=== PATIENT | male | born 1960 | race Caucasian/White ===

== ENCOUNTER 2016-08-31 06:33 | Outpatient (CLI) | payer OTHER ==
[~2016-08-31] VITALS: Ht 167.6 cm; Wt 109.1 kg
--- NOTE | ~2016-08-31 | HEMODYNAMI ---
PATIENT:CHATO MADRID MEDICAL RECORD: [id number] : 56 LOCATION:[facility] ADMISSION DATE: 08/31/16 Generatedon:08/31/20169:41 Patient name: CHATO MADRID Patient #: [id number] SSN: : 1960 Date of study: 08/31/2016 Page: Of Hemodynamic Procedure Report Patient Data Patient Demographics Procedure consent was obtained First Name: CHATO Gender: Male Last Name: MERCY : 1960 Patient #: [id number] Age: 56 year(s) Race: Additional ID: [id number] Contact details [address]: [address] [place] [address] State: [place] City: [place] Zip code: [address] Past Medical History History of disease Date Diagnosis Comments CAD Allergies: No known allergies Admission Admission Data Admission Date: 08/31/2016 Admission Time: 6:33 Height (in.): 66 Height (cm.): 167.64 Procedure Procedure Types Cath Procedure Diagnostic Procedure LHC LHC w/Coronaries PCI Procedure PTCA Initial x2 Miscellaneous Procedures Moderate Sedation up to 45 minutes Procedure Description Procedure Date Procedure Date: 08/31/2016 Procedure Start Time: 9:04 Procedure End Time: 9:38 Procedure Staff Name Function Rivas Crow MD Performing Physician Bi Monroe RT Scrub Debbie Vyas RN Nurse Caden Sotelo RT Monitor Procedure Data Cath Procedure Fluoroscopy Diagnostic fluoroscopy Total fluoroscopy Time: 9.9 time: 9.9 min min Diagnostic fluoroscopy Total fluoroscopy dose: dose: 1442 mGy 1442 mGy Contrast Material Contrast Material Type Amount (ml) Isovue 300 176 Entry Location Entry Primary Successful Side Size Upsize Upsize Entry Closure Succes sful Closure Location (Fr) 1 (Fr) 2 (Fr) Remarks Device Remarks Femoral Right 5 Fr 6 Fr Exoseal artery Short Diagnostic catheters Device Type Used For End Catheter Placement Cordis 5Fr JL 4.0 Left Coronary Catheter (MP) Angiography Cordis 5Fr 3DRC Catheter Right Coronary (MP) Angiography Cordis 5Fr Pigtail LV Angiography Catheter (MP) Procedure Complications No complications Procedure Medications Medication Administration Route Dosage Oxygen NC 2 l/min Heparin Flush Bag added to field 2 bags (1000units/500ml NS) Lidocaine 2% added to field 20 Versed I.V. 1 mg Fentanyl I.V. 50 mcg Versed I.V. 1 mg Fentanyl I.V. 50 mcg Fentanyl I.V. 50 mcg Fentanyl I.V. 25 mcg Fentanyl I.V. 25 mcg Heparin Bolus I.V. 96445 units Plavix P.O. 600 mg Hemodynamics Rest Heart Rate: 56 (bpm) Pressure Samples Time Site Value (mmHg) Purpose Heart Use Rate(bpm) 9:12 LV 130/14,23 EDP 54 9:13 LV 132/14,22 Snapshot 55 9:13 AO 124/72(92) Pullback 54 9:13 LV 132/14,24 Pullback 54 Gradients Valve Time Site 1 Site 2 Mean SEP/DFP Peak To Heart Use (mmHg) (sec/min) Peak Rate (mmHg) (bpm) Aortic 9:13 LV AO 12 16 8 54 132/14,24 124/72(92) Calculations Valve P-P Mean Valve Index Valve Source Name Gradient Area Flow (cm2) Aortic 8 12 8 12 Snapshots Pre Cath Intra NCS Post Cath Vital Signs Time Heart Resp SPO2 etCO2 MI1ohrc NIBP (mmHg) Rhythm Pain Sedation Rate (ipm) (%) (mmHg) (mmHg) Status Level (bpm) 8:50:37 57 18 98 0 0 148/80(110) NSR 0 (11) 10(A) , No pain 8:54:54 55 16 99 0 0 142/88(110) NSR 0 (11) 10(A) , No pain 8:59:14 55 15 98 0 0 129/73(95) NSR 0 (11) 10(A) , No pain 9:03:28 55 14 97 0 0 129/74(95) NSR 0 (11) 9(A) , No pain 9:07:41 52 16 96 0 0 121/70(91) NSR 0 (11) 9(A) , No pain 9:11:53 53 14 97 0 0 124/72(95) NSR 0 (11) 9(A) , No pain 9:16:09 52 20 97 0 0 127/62(91) NSR 0 (11) 9(A) , No pain 9:20:21 52 16 97 0 0 119/67(84) NSR 0 (11) 9(A) , No pain 9:24:33 51 22 97 0 0 119/69(89) NSR 0 (11) 9(A) , No pain 9:28:47 51 22 97 0 0 119/66(85) NSR 0 (11) 9(A) , No pain 9:32:57 61 19 98 0 0 122/73(98) NSR 0 (11) 9(A) , No pain 9:34:52 52 23 98 0 0 134/80(101) NSR 0 (11) 10(A) , No pain Medications Time Medication Route Dose Verified Delivered Reason Notes Effectiveness by by 8:55:00 Oxygen NC 2 Rivas Debbie Per physician l/min Tristin Vyas RN 8:55:10 Heparin Flush added 2 Rivas Rivas used for Bag to bags Tristin Crow MD procedure (1000units/500ml field NS) 8:55:24 Lidocaine 2% added 20ml Rivas Rivas used for to vial Tristin Crow MD procedure field 8:59:36 Versed I.V. 1 mg Rivas Debbie for sedation Tristin Vyas RN 8:59:37 Fentanyl I.V. 50 Rivas Debbie for sedation mcg Tristin Vyas RN 9:01:38 Versed I.V. 1 mg Rivas Debbie for sedation Tristin Vyas RN 9:01:44 Fentanyl I.V. 50 Rivas Debbie for sedation mcg Tristin Vyas RN 9:03:55 Fentanyl I.V. 50 Rivas Debbie for sedation saadia Vyas RN 9:10:14 Fentanyl I.V. 25 Rivas Debbie for sedation mcg Tristin Vyas RN 9:16:36 Fentanyl I.V. 25 Rivas Debbie for sedation mcg Tristin Vyas RN 9:17:40 [place]. 55655 Rivas Debbie for dose units Tristin Vyas RN anticoagulation verified with dr fontaine 9:35:24 Plavix P.O. 600 Rivas Debbie for mg Tristin Vyas RN antiplatelet therapy Procedure Log Time Note 8:30:40 Bi Monroe RT(R) sent for patient. Start room use. 8:34:33 ACC Patient presents with Stable Angina CCS Anginal Class 2--Slight limitation of ordinary activity. 8:34:36 Diagnostic Cath status Elective 8:34:43 Time tracking: Regular hours 8:34:49 Plan of Care:Hemodynamics will remain stable., Cardiac rhythm will remain stable., Comfort level will be maintained., Respiratory function will remain adequate., Patient/ family verbilizes understanding of procedure., Procedure tolerated without complication., Recovers from procedure without complications.. 8:39:36 Patient Height : 66 cm 8:45:45 Patient received from Pre/Post Procedure Room to CCL 1 Alert and oriented. Tansferred to table in Supine position. 8:45:57 Warm blankets applied, and yana hugger turned on for patient comfort. 8:45:58 Correct patient and procedure confirmed by team. 8:45:59 Signed procedure consent form obtained from patient. 8:45:59 ECG and BP/O2 sat monitors applied to patient. 8:49:27 Vital chart was started 8:55:00 Oxygen 2 l/min NC was administered by Debbie Vyas RN; Per physician; 8:55:10 Heparin Flush Bag (1000units/500ml NS) 2 bags added to field was administered by Rivas Crow MD; used for procedure; 8:55:24 Lidocaine 2% 20ml vial added to field was administered by Rivas Crow MD; used for procedure; 8:56:43 Baseline sample Acquired. 8:56:47 Rhythm: sinus rhythm 8:56:48 Full Disclosure recording started 8:57:22 H&P Date Dictated: 08/24/2016 Within 30 days and on chart., H&P Addendum completed by physician on day of procedure. (MUST COMPLETE FOR ALL OUTPATIENTS). 8:57:25 Pre-procedure instructions explained to patient. 8:57:26 Pre-op teaching completed and patient verbalized understanding. 8:57:28 Family unavailable. 8:57:30 Patient NPO since Midnight. 8:57:37 Patient allergic to No known allergies 8:57:39 Is the patient allergic to Iodine/contrast media? No. 8:57:42 Was the patient premedicated? No 8:57:47 Is patient on blood thinner?No 8:57:49 Patient diabetic? No. 8:57:50 ----Pre-sedation anethsthesia assessment.---- 8:57:53 Previous problem with sedation/anesthesia? No ? 8:57:55 Snore? Yes 8:57:57 Sleep apnea? No 8:57:59 Deviated septum? No 8:58:00 Opens mouth fully? No 8:58:02 Sticks out tongue? Yes 8:58:04 Airway obstruction? No ? 8:58:08 Dentures? No ? 8:58:12 Pre procedure: right dorsailis pedis pulse 1+ Palpable, but thready & weak; easily obliterated 8:58:16 Patient pain scale 0/10 ?. 8:58:37 IV patent on arrival in left wrist with 0.9% NaCl at 10ml/hr. 8:59:06 Right Radial & Right Groin area was prepped with chlora-prep and draped in sterile fashion 8:59:06 Alarms reviewed by R. N. 8:59:07 Sharps counted by scrub and verified by R.N. 8:59:08 --------ALL STOP TIME OUT------ 8:59:08 Final Timeout: patient, procedure, and site verified with staff and physician. All members of the team are in agreement. 8:59:11 Right groin site verified by team. 8:59:14 Physical assessment completed. ASA score P 2 - A patient with mild systemic disease as per Rivas Crow MD. 8:59:19 Sedation plan: IV Moderate Sedation Versed, Fentanyl 8:59:25 Use device set Femoral Dx 8:59:26 Acist Syringe opened to sterile field. 8:59:27 Bag Decanter opened to sterile field. 8:59:27 Medline Cath Pack opened to sterile field. 8:59:27 Terumo 5Fr Maurice Sheath opened to sterile field. 8:59:28 St Mihai 260cm J .035 wire opened to sterile field. 8:59:29 Acist Hand Control opened to sterile field. 8:59:30 Acist Manifold opened to sterile field. 8:59:30 Diagnostic Infinity 5Fr Multipack catheter opened to sterile field. 8:59:30 Tegaderm 4 x 4 opened to sterile field. 8:59:36 Versed 1 mg I.V. was administered by Debbie Vyas RN; for sedation; 8:59:37 Fentanyl 50 mcg I.V. was administered by Debbie Vyas RN; for sedation; 9:01:38 Versed 1 mg I.V. was administered by Debbie Vyas RN; for sedation; 9:01:44 Fentanyl 50 mcg I.V. was administered by Debbie Vyas RN; for sedation; 9:03:47 Procedure started. 9:03:55 Fentanyl 50 mcg I.V. was administered by eDbbie Vyas RN; for sedation; 9:04:01 Local anesthetic to right femoral artery with Lidocaine 2% by Rivas Crow MD.INITIAL ACCESS ONLY 9:04:10 A 5 Fr sheath was inserted into the Right Femoral artery 9:05:30 Zero performed for pressure channel P1 9:05:55 A Cordis 5Fr JL 4.0 Catheter (MP) was advanced over the wire and used for Left Coronary Angiography. 9:07:57 LCA angiography performed. 9:08:16 Catheter removed. 9:08:50 A Cordis 5Fr 3DRC Catheter (MP) was advanced over the wire and used for Right Coronary Angiography. 9:08:54 RCA angiography performed. 9:10:14 Fentanyl 25 mcg I.V. was administered by Debbie Vyas RN; for sedation; 9:11:22 Catheter removed. 9:12:21 A Cordis 5Fr Pigtail Catheter (MP) was advanced over the wire and used for LV Angiography. 9:12:27 LV angiography performed. 9:12:29 LV gram done using [place] 9:12:30 LV hemodynamics recorded. 9:12:34 Injector settings: Ml/sec: 10, Volume: 20, 9:13:26 EF : 55 % 9:13:32 Catheter removed. 9:14:27 Terumo 6Fr Maurice Sheath opened to sterile field. 9:14:28 High Pressure Extension Tubing (Tristin) opened to sterile field. 9:14:28 L2tronic Launcher 6Fr AR 1.0 guide catheter opened to sterile field. 9:14:28 [employer] BasixCompak Inflation Kit opened to sterile field. 9:14:29 Cardona BMW [place] 2 J-tip 300cm 0.014 guide wir opened to sterile field. 9:15:12 Sheath upsized to a 6 Fr Short. 9:16:09 6 Fr AR1 guide catheter was inserted over the wire 9:16:36 Fentanyl 25 mcg I.V. was administered by Debbie Vyas RN; for sedation; 9:17:40 Heparin Bolus 32345 units I.V. was administered by Debbie Vyas RN; for anticoagulation; dose verified with dr fontaine 9:18:00 BMW J wire advanced. 9:19:07 ACC PCI Site: LMCA has ?% stenosis. 9:19:18 ACC PCI Site: PDA has 80% stenosis. 9:19:20 ACC Pre-intervention CEM Flow is 3. 9:22:19 Inflation number: 1 A [place] Sci [place] 2.5 X 20 balloon was prepped and advanced across the R PDA, then inflated to 16 ARAMIS for 0:30 (min:sec). 9:23:48 Balloon removed over the wire. 9:23:49 Wire removed. 9:24:10 ACC PCI Site: PDA has 95% stenosis. 9:24:14 ACC Pre-intervention CEM Flow is 3. 9:24:21 BMWJ wire advanced. 9:28:39 Inflation number: 1 The [place] Sci [place] 2.5 X 20 balloon was reinflated across the 1st RPL, to 6 ARAMIS for 0:12 (min:sec). 9:29:23 Inflation number: 2 The [place] Sci [place] 2.5 X 20 balloon was reinflated across the 1st RPL, to 12 ARAMIS for 0:34 (min:sec). 9:31:05 Inflation number: 1 The [place] Sci [place] 2.5 X 20 balloon was reinflated across the R PAV, to 10 ARAMIS for 0:33 (min:sec). 9:32:21 Balloon removed over the wire. 9:32:21 Wire removed. 9:32:22 Guide catheter removed. 9:32:24 ACC Post-intervention CEM Flow is 3. 9:32:35 Sheath removed intact; hemostasis achieved with Exoseal to the Right Femoral artery. 9:32:42 Cordis 6Fr Exoseal opened to sterile field. 9:32:48 Contrast amount:Isovue 300 176ml. 9:32:50 Procedure ended.(Physican Out) 9:33:22 Fluoroscopy time 09.90 minutes. 9:33:31 Fluoroscopy dose: 1442 mGy 9:33:31 Flurop Dose total: 1442 9:35:24 Plavix 600 mg P.O. was administered by Debbie Vyas RN; for antiplatelet therapy; 9:36:22 Sharps counted by scrub and verified by R.N. 9:36:40 Procedure type changed to Cath procedure, Diagnostic procedure, LHC, LHC w/Coronaries, PCI procedure, PTCA Initial x2, Miscellaneous Procedures, Moderate Sedation up to 45 minutes 9:36:43 Insertion/operative site no bleeding no hematoma. 9:36:46 Post-op/insertion site Right Femoral artery dressed using a 4 x 4 and Tegaderm. 9:36:49 Post right femoral artery:stable 9:36:50 Post Procedure Pulses reassessed and unchanged 9:36:53 Post procedure: right dorsailis pedis pulse 1+ Palpable, but thready & weak; easily obliterated. 9:36:55 Post procedure rhythm: sinus rhythm 9:37:37 Post procedure instruction explained to patient.Patient verbalizes understanding. 9:38:03 Procedure and supply charges have been captured, reviewed, submitted and are correct. 9:38:09 Procedure Complication : No complications 9:38:11 Vital chart was stopped 9:38:11 See physician's report for complete and final results. 9:38:15 Report given to Pre/Post Procedure Room. 9:38:18 Patient transfered to Pre/Post Procedure Room with Stretcher. 9:38:20 Procedure ended. 9:38:20 Full Disclosure recording stopped 9:38:30 ACC-PCI Only Patient was given prescriptions, or instructed by Rivas Crow MD to start/continue the following medications upon discharge: Plavix 9:38:32 End room use (Document Last) Intervention Summary Intervention Notes Time ActionType Lesion and Equipment Action# Pressure Duration Attributes Used 9:22:19 Inflate R PDA [place] 1 16 00:30 balloon Sci [place] 2.5 X 20 balloon 9:28:39 Reinflate 1st RPL [place] 1 6 00:12 balloon Sci [place] 2.5 X 20 balloon 9:29:23 Reinflate 1st RPL [place] 2 12 00:34 balloon Sci [place] 2.5 X 20 balloon 9:31:05 Reinflate R PAV [place] 1 10 00:33 balloon Sci [place] 2.5 X 20 balloon Device Usage Item Name Manufacture Quantity Catalog Number Hospital Part Current Mini mal Lot# / Charge Number Stock Stock Serial# Code Acist Acist 1 43719 217098 230595 681128 20 Syringe Medical Systems Inc Bag Microtek 1 2002S 915619 69357 063285 5 Organics Rx Inc. Medline Cardinal 1 [id number] 898704 33435 208456 5 Cath Pack Health Terumo 5Fr Terumo 1 [id number] 149478 042998 456873 [address] St Mihai 1 365144 689404 759085 088626 30 260cm J .035 wire Acist Hand Acist 1 59122 574839 444609 583980 5 Control Medical Systems Inc Acist Acist 1 13012 036181 697983 909323 5 Manifold Medical Systems Inc Diagnostic Cardinal 1 [id number] 237276 43387 364195 30 Infinity Health 5Fr Multipack catheter Tegaderm 4 3M 1 1626W 098053 799496 645903 5 x 4 Cordis 5Fr Cardinal 1 529806 5 JL 4.0 Health Catheter (MP) Cordis 5Fr Cardinal 1 723125 5 3DRC Health Catheter (MP) Cordis 5Fr Cardinal 1 852555 5 Pigtail Health Catheter (MP) Terumo 6Fr Terumo 1 [id number] 665880 136629 642337 40 Maurice Sheath High Merit 1 [id number] 432873 26434 220179 10 Pressure Medical Extension Tubing (Crow) Medtronic Medtronic 1 [id number] 145834 04102 663699 1 Launcher 6Fr AR 1.0 guide catheter Merit Merit 1 [id number] 953109 919060 438214 15 BasixCompak Medical Inflation Kit Cardona BMW Cardona 1 [id number] 518288 869156 237462 5 [place] 2 Vascular J-tip 300cm 0.014 guide wir [place] Sci [place] 1 [id number] 533890 209037 923321 1 [id number] [place] Scientific 2.5 X 20 balloon Cordis 6Fr Cardinal 1 [id number] 291723 915728 323844 10 Wintegra Signature Audit [place] Stage Time Signature Unsigned Intra-Procedure 08/31/2016 Caden Sotelo 9:41:26 AM RT(R) Signatures Monitor : Caden Sotelo RT Signature : Date : Time : [address] [place] [address]
[~2016-08-31 06:33] MED LIST: BAYER CHEWABLE81 MG PO; BLOOD PRESSURE; BRILINTA90 MG PO; CATAPRES0.2 MG PO; CHOLESTEROL PILL; COREG 3.1253.125 MG PO; FISH OIL 1,0001 CA1 PO; MULTIPLE VITAMI1 TA1 PO; NORVASC5 MG PO; PRAVACHOL40 MG PO; ZIAC 5-6.25 MG1 TAB
[2016-08-31 07:34] LABS: BASOPHILS 0.7 % (0.0-2.0); EOSINOPHILS 3.1 % (0-7); HEMATOCRIT 41.9 % (42.0-54.0); HEMOGLOBIN 14.3 g/dL (13.5-17.5); IMMATURE GRANULOCYTES 0.2 % (0-5); LYMPHOCYTES 24.3 % (15-50); MCH 30.5 pg (26.0-34.0); MCHC 34.1 g/dL (31.0-37.0); MCV 89.3 fL (80.0-100.0); MEAN PLATELET VOLUME 9.2 fL (7.4-10.4); MONOCYTES 11.7 % (2-11); RBC 4.69 10x6/uL (4.20-6.10); RDW 12.6 % (11.5-14.5); WBC 4.5 10x3/uL (4.8-10.8)
[2016-08-31 07:39] LABS: PLATELET COUNT 189 10x3/uL (130-400)
[2016-08-31 07:45] VITALS: BP 165/80; Ht 167.6 cm; Wt 109.1 kg
[2016-08-31 07:52] LABS: ANION GAP 14.4 mmol/L (8-16); CREATININE - SERUM 1.5 mg/dL (0.6-1.3); POTASSIUM - SERUM 4.4 mmol/L (3.5-5.1)
[2016-08-31] MEDS ORDERED: BRILINTA90 MG PO (10:08)
--- NOTE | 2016-08-31 10:15 | NUR ---
VSS WITH CHEST PAIN DENIED 6 FR EXOSEAL R/GROIN CDI NO BLEEDING NO HEMATOMA NOTED. INSTRUCTED PATIENT TO KEEP HEAD FLAT ON PILLOW WITH RLE STRAIGHT NAUSEA DENIED
--- NOTE | 2016-08-31 10:47 | NUR ---
SANDWICH AND WATER TO BEDSIDE WITH ASSIST PROVIDED. CHEST PAIN IS DENIED. 6 FR EXOSEAL R/GROIN CDI NO BLEEDING NO HEMATOMA NOTED. PULSES PRESENT.
--- NOTE | 2016-08-31 11:12 | NUR ---
RESTING QUIELTY WITH NO C/O 6 FR EXOSEAL R/GROIN CDI NO BLEEDING NO HEMATOMA NOTED WILL MONITOR
--- NOTE | 2016-08-31 11:45 | NUR ---
VSS WITH CHEST PAIN DENIED 6 FR EXOSEAL R/GROIN CDI NO BLEEDING NO HEMATOMA NOTED. RESTING QUIETLY
--- NOTE | 2016-08-31 12:40 | NUR ---
1230 PT DENIES ANY C/O. 6 FR EXOSEAL IS CDI TO RIGHT GROIN, NO BLEEDING OR HEMATOMA NOTED. PEDAL PULSES PALPABLE. PT CONSUMED 100% OF DIET TRAY PROVIDED. PT HAS VOIDED 600 CC CLEAR YELLOW URINE USING URINAL. PT DENIES ANY C/O AT THIS TIME. RR EVEN AND UNLABORED. VSS SINUS MAHESH WITH RATE 52.
--- NOTE | 2016-08-31 14:02 | NUR ---
1345 REVIEWED DC INSTRUCTIONS WITH PT WHO VERBALIZES UNDERSTANDING. IV DC'D WITH CATH INTACT. PT IS DRESSING FOR DC TO HOME. 1400 RIGHT GROIN DRESSING REMAINS CDI AFTER AMBULATION, NO BLEEDING OR HEMATOMA NOTED. PT HAS VOIDED ANOTHER 300 CC CLEAR YELLOW URINE. PT ESCORTED TO PRIVATE AUTO VIA WC BY STAFF WITH HIS SISTER DRIVING HIM HOME.
--- NOTE | 2016-09-08 14:54 | OP ---
PATIENT NAME: CHATO MADRID MEDICAL RECORD: [id number] :56 LOCATION:D.[facility] ADMISSION DATE: SURGEON: RACHEL WATSON M.D. DATE OF OPERATION: 08/31/2016 Catheterization Report REFERRING PHYSICIAN: Pavel Munguia MD. PROCEDURES PERFORMED: 1. Selective coronary angiography. 2. Left heart catheterization with ventriculogram. 3. PTCA of the PDA. 4. PTCA to the posterolateral branch of the right coronary artery. INDICATION: A 56-year-old gentleman with history of coronary artery disease presents with accelerating angina. EQUIPMENT USED: Diagnostic 5-Mozambican JL4, Jacques right, pigtail catheter. INTERVENTION: A 6-Mozambican AR1 guide, BMW guide wire, 2.5 x 20 mm Greenwood balloon. TECHNIQUE: A 5-Mozambican sheath was inserted in retrograde fashion in the right common femoral artery. Next, selective coronary angiography was performed in standard 5-Mozambican JL4 and Jacques right. Left heart catheterization was performed using pigtail catheter. CORONARY ANATOMY: 1. Left main: Left main trunk is moderate in caliber. It gives rise to the LAD and circumflex. There is no obstruction. 2. LAD: This is a moderate caliber vessel extending to the apex. It has mild irregularities throughout its course, but nothing worse than 20%. The first diagonal branch has been stented. The stent is widely patent and without evidence of restenosis. 3. Circumflex: This vessel is moderate in caliber. The proximal vessel has been stented. The stent is widely patent and has no evidence of restenosis. 4. Right coronary artery: This vessel is moderate in caliber and dominant. The mid vessel has been stented. The stent is patent. However, the origin of the PDA has been stented, has a long 80% in-stent restenosis. The posterolateral branch has been stented and has a long 95% in-stent restenosis. 5. Left ventricle: Left ventricle is normal in size and function. No wall motion abnormalities are seen. Its ejection fraction is 55%. DESCRIPTION OF INTERVENTION: A 6-Mozambican sheath was inserted in retrograde fashion in the right common femoral artery. Next, 100 units per kilogram of heparin was infused. A 6-Mozambican AR1 guide was advanced and engaged in the right coronary artery. Next, a BMW guide wire was placed to the PDA. A 2.5 x 20 mm Greenwood balloon was advanced and a long inflation at 16 atmospheres. This resulted in about 10% residual stenosis within the stent. At this point, the wire was directed into the posterolateral branch of the right coronary artery. A 2.5 balloon was then advanced a long inflation performed at 12 atmospheres. Injection revealed 0% residual stenosis within the stent. The wire was then pulled back. Final injection revealed brisk flow through both stents with no restenosis. At this point, the wire and guide were removed. OPERATIVE REPORT [id number] CHATO MADRID IMPRESSION: Successful percutaneous transluminal coronary angioplasty to the posterolateral branch and PDA of the right coronary artery for in-stent restenosis. TRANSINT:[id number] Voice Confirmation ID: [id number] DOCUMENT ID: [id number] RACHEL WATSON M.D. at 1454 CC: [id number] DICTATION DATE: 08/31/16 0944 ANALYST FOOD AND BEVERAGE: 08/31/16 1054 DEP CLI 08/31/16 [facility] [address] [place] [address]
== END 2016-08-31 14:00 | disposition home or self-care (01) ==
LOC: D.CATH 06:33
PROVIDERS: Internal Medicine Cardiovascular Disease
DX: I25.110 Atherosclerotic heart disease of native coronary artery with unstable angina pectoris (principal); T82.855A Stenosis of coronary artery stent, initial encounter

== ENCOUNTER → 2017-04-20 12:43 | Outpatient (CLI) | payer OTHER ==
[2016-08-31 07:45] VITALS: BMI 38.8
[2017-04-20 14:10] LABS: CREATININE - SERUM 1.7 mg/dL (0.6-1.3)
== END | disposition home or self-care (01) ==
LOC: D.CT 12:43
PROVIDERS: Internal Medicine
DX: Q61.3 Polycystic kidney, unspecified (principal); N18.3 Chronic kidney disease, stage 3 (moderate)

== ENCOUNTER → 2018-09-05 18:51 | Outpatient (CLI) | payer OTHER ==
[2016-08-31 07:45] VITALS: BMI 38.8
[2018-09-05 19:19] LABS: CHOL - HDL RATIO 6.8 ratio (2.3-4.9); LDL-HDL RATIO 4.4 ratio (1.5-3.5)
== END | disposition home or self-care (01) ==
LOC: D.LABREF 18:51
PROVIDERS: ATTEND Internal Medicine Cardiovascular Disease
DX: I25.10 Atherosclerotic heart disease of native coronary artery without angina pectoris (principal)